=== PATIENT | male | born 1995 ===

== ENCOUNTER 2017-04-22 20:35 | Emergency (ER) | payer BC ==
[2017-04-22 20:44] VITALS: BP 127/85; PULSE 65; TEMP 98.2; BMI 21.1
[2017-04-22] MEDS ORDERED: LIDO 2%/EPI 1:200000 PRESRVFRE (20 ML SDVIAL) ONE (20:56)
[2017-04-22] MEDS ORDERED: LIDOCAINE 2%/EPINEPHRINE 1:100000 (50 ML MD VIAL) INF ONE (20:56)
--- NOTE | 2017-04-22 20:57 | PDOC ---
History of Present Illness - General History Source: Patient, Parent(s) Exam Limitations: No Limitations - History of Present Illness Initial Comments: The patient is a 22 year old male with no significant past medical history, who presents to the emergency department today for further evaluation of a laceration on his chin s/p mechanical fall without loss of consciousness at 8: 30 today. The patient states that he was playing his guitar in a chair, leaned back and fell. The patient states that he is not sure what caused the laceration but suspects it was his guitar hitting his face. PAST MEDICAL HISTORY: No significant history reported ALLERGIES: Denies <Aldo Michele - Last Filed: 04/22/17 21:14> <Ele Lucio - Last Filed: 04/22/17 22:44> - General Chief Complaint: Laceration Stated Complaint: CHIN LAC Time Seen by Provider: 04/22/17 20:51 Past History <Aldo Michele - Last Filed: 04/22/17 21:14> - Past Medical History Other medical history: DENIES - Immunization History Immunization Up to Date: Yes - Psycho/Social/Smoking Cessation Hx Anxiety: No Suicidal Ideation: No Smoking History: Never smoked <Ele Lucio - Last Filed: 04/22/17 22:44> - Past Medical History Allergies/Adverse Reactions: Allergies Allergy/AdvReac Type Severity Reaction Status Date / Time No Known Allergies Allergy Unverified 04/22/17 20:40 Home Medications: Ambulatory Orders Bacitracin - [Bacitracin Topical Ointment -] 1 applic TP BID #10 g 04/22/17 Cephalexin Monohydrate [Keflex -] 250 mg PO Q6H #20 capsule 04/22/17 Review of Systems - Review of Systems Able to Perform ROS?: Yes Comments:: GENERAL/CONSTITUTIONAL: No fever or chills. No weakness. HEAD, EYES, EARS, NOSE AND THROAT: (+) No change in vision. No ear pain or discharge. No sore throat. Chin laceration. CARDIOVASCULAR: No chest pain or shortness of breath. RESPIRATORY: No cough, wheezing, or hemoptysis. GASTROINTESTINAL: No nausea, vomiting, diarrhea or constipation. GENITOURINARY: No dysuria, frequency, or change in urination. MUSCULOSKELETAL: No joint or muscle swelling or pain. No neck or back pain. SKIN: No rash NEUROLOGIC: No headache, vertigo, loss of consciousness, or change in strength/ sensation. ENDOCRINE: No increased thirst. No abnormal weight change. HEMATOLOGIC/LYMPHATIC: No anemia, easy bleeding, or history of blood clots. ALLERGIC/IMMUNOLOGIC: No hives or skin allergy. <MarkokavithaAldo - Last Filed: 04/22/17 21:14> *Physical Exam - Vital Signs Last Vital Signs Temp Pulse Resp BP Pulse Ox 98.2 F 65 16 127/85 99 04/22/17 20:41 04/22/17 20:41 04/22/17 20:41 04/22/17 20:41 04/22/17 20:41 - Physical Exam Comments: GENERAL: Awake, alert, and fully oriented, in no acute distress HEAD: (+) 1.5 cm laceration on chin. EYES: PERRLA, EOMI, sclera anicteric, conjunctiva clear ENT: Auricles normal inspection, hearing grossly normal, nares patent, oropharynx clear without exudates. Moist mucosa NECK: Normal ROM, supple, no lymphadenopathy, JVD, or masses LUNGS: Breath sounds equal, clear to auscultation bilaterally. No wheezes, and no crackles HEART: Regular rate and rhythm, normal S1 and S2, no murmurs, rubs or gallops ABDOMEN: Soft, nontender, normoactive bowel sounds. No guarding, no rebound. No masses EXTREMITIES: Normal range of motion, no edema. No clubbing or cyanosis. No cords, erythema, or tenderness NEUROLOGICAL: Cranial nerves II through XII grossly intact. Normal speech, normal gait SKIN: Warm, Dry, normal turgor, no rashes or lesions noted. <MarkokavithaAldo - Last Filed: 04/22/17 21:14> - Vital Signs Last Vital Signs Temp Pulse Resp BP Pulse Ox 98.2 F 65 16 127/85 99 04/22/17 20:41 04/22/17 20:41 04/22/17 20:41 04/22/17 20:41 04/22/17 20:41 <Ele Lucio - Last Filed: 04/22/17 22:44> Procedures - Laceration/Wound Repair Jaw Wound Length: to 2.5 cm Wound Explored: clean Wound's Depth, Shape: superficial, linear Irrigated w/ Saline: Yes Betadine Prep: Yes Anesthesia: 2% Lidocaine w/ Epi Amount of Anesthetic (ccs): 3 Wound Repaired With: Sutures Suture Size/Type: 4:0 Number of Sutures: 3 <Ele Lucio - Last Filed: 04/22/17 22:44> Medical Decision Making - Medical Decision Making 04/22/17 22:42 Pt fell onto his left side while rocking on a chair outdoors and playing the guitar. He has abrasions to the left arm and shoulder. and he cut his chin with his guitar, which broke. Pt's wounds were all dressed with bacitracin. He was given a tetanus shot (good for 10 years) and he will be prophylaxed with 5 days of keflex. Pt can take OTC motrin tylenol for the pain. bacitracin to wound. Absorbable sutures in the chin. Normal rest of exam, normal neuro and HEENT exam. <Ele Lucio - Last Filed: 04/22/17 22:44> *DC/Admit/Observation/Transfer - Attestations Scribe Attestion: Documentation prepared by Aldo Michele, acting as medical assembler for Ele Lucio MD. <Aldo Michele - Last Filed: 04/22/17 21:14> <Ele Lucio - Last Filed: 04/22/17 22:44> Diagnosis at time of Disposition: Facial laceration - Discharge Dispostion Disposition: HOME Condition at time of disposition: Stable - Prescriptions Prescriptions: Bacitracin - [Bacitracin Topical Ointment -] 1 applic TP BID #10 g Cephalexin Monohydrate [Keflex -] 250 mg PO Q6H #20 capsule - Referrals Referrals: Wendy Gayle [Primary Care Provider] - - Patient Instructions Printed Discharge Instructions: DI for Laceration Repair
[2017-04-22] MEDS ORDERED: CEPHALEXIN MONOHYDRATE 250 MG CAPSULE (FP) PO ONE (21:25)
[2017-04-22] MEDS ORDERED: DIPHTH,PERTUSS(ACELL),TET VAC 0.5 ML VIAL IM ONE (21:26)
[2017-04-22] MEDS ORDERED: CEPHALEXIN MONOHYDRATE 250 MG CAPSULE (FP) ONE (21:26)
== END 2017-04-22 21:35 | disposition home or self-care (01) ==
LOC: FER 20:35
PROC: 0HQ1XZZ Repair Face Skin, External Approach (ICD-10-PCS; principal; 2017-04-22)
DX: S01.81XA Laceration without foreign body of other part of head, initial encounter (principal); W07.XXXA Fall from chair, initial encounter; Y93.89 Activity, other specified; Y92.89 Other specified places as the place of occurrence of the external cause
CPT/HCPCS: 99281-25